=== PATIENT | male | born 1965 | race Caucasian/White ===

== ENCOUNTER 2018-04-02 00:16 | Emergency (ER) | payer SELFPAY ==
[2018-04-02] MEDS ORDERED: Diphtheria,Pertussis(Acell),Tetanus Vaccine 0.5 ML Syringe IM ONE (00:20)
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
[2018-04-02 00:57] LABS: CHLORIDE,CL 102 mmol/L (98-107); SODIUM,NA 139 mmol/L (136-148)
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
== END 2018-04-02 01:35 ==
LOC: MW.ED 00:16
DX: S00.81XA Abrasion of other part of head, initial encounter (principal); V89.2XXA Person injured in unspecified motor-vehicle accident, traffic, initial encounter
CPT/HCPCS: 36415; 70450; 71045; 72125; 72170; 80053; 84484; 85025; 85610; 90471; 90715; 93005; 99285; G0480; 99283

== ENCOUNTER 2018-05-24 18:03 | Emergency (ER) | payer SELFPAY ==
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
== END 2018-05-24 18:45 ==
LOC: MW.ED 18:03
DX: F10.129 Alcohol abuse with intoxication, unspecified (principal)
CPT/HCPCS: 82962; 99283